=== PATIENT | male | born 1975 | race African-American/Black ===

== ENCOUNTER 2024-02-03 15:13 | Emergency (ER) | payer SELFPAY ==
[~2024-02-03] VITALS: Ht 175.3 cm; Wt 70.3 kg
[2024-02-03 15:24] VITALS: O2SAT 100
[2024-02-03] MEDS: TETRACAINE 0.5% OPHTH DROPS 4ML RIGHTEYE ONE (17:30)
[2024-02-03] MEDS: FLUORESCEIN SODIUM 1MG/STRIP RIGHTEYE ONE (17:30)
[2024-02-03 18:00] VITALS: BP 122/74; PULSE 81; RESP 17; TEMP 36.66960; O2SAT 99
[2024-02-03] MEDS ORDERED: ERYT1OIN6 RIGHTEYE (18:06)
== END 2024-02-03 18:38 | disposition home or self-care (01) ==
LOC: ER 15:19
DX: H11.31 Conjunctival hemorrhage, right eye (principal); Z88.0 Allergy status to penicillin
CPT/HCPCS: 99283